=== PATIENT | female | born 1995 | race Caucasian/White ===

== ENCOUNTER 2024-08-11 12:19 | Emergency (ER) | payer MEDICAID ==
[~2024-08-11] VITALS: Ht 154.9 cm; Wt 70.9 kg
[2024-08-11 12:25] VITALS: TEMP 97.5
[2024-08-11] MEDS: METOCLOPRAMIDE HCL 10 MG TABLET PO ONE (14:39)
[2024-08-11] MEDS: ACETAMINOPHEN 500 MG TABLET PO ONE (14:39)
[2024-08-11 15:00] VITALS: BP 115/65; PULSE 69; RESP 15; O2SAT 98
[2024-08-11] MEDS ORDERED: METO5TAB95 PO (15:27)
[2024-08-11] MEDS: PERTUSS(ACELL),DIPH,TET/PF 0.5 ML SYRINGE [ADULT] IM. ONE (15:29)
== END 2024-08-11 15:36 | disposition home or self-care (01) ==
LOC: EMS 12:21
DX: S06.0X0A Concussion without loss of consciousness, initial encounter (principal); R11.0 Nausea; Y04.0XXA Assault by unarmed brawl or fight, initial encounter; Y93.89 Activity, other specified; Y92.89 Other specified places as the place of occurrence of the external cause; Y99.8 Other external cause status
CPT/HCPCS: 90471; 90715; 99283